=== PATIENT | female | born 1980 | race African-American/Black ===

== ENCOUNTER 2024-09-02 17:22 | Outpatient (OUT) | payer OTHER, SELFPAY ==
--- NOTE | 2024-09-02 | ECG_ITS ---
[facility] Test Date: 2024-09-02 Pat Name: Roxi Claudio Department: Room: - Gender: Female Hospital Cleaner: : 1980 Requested By: MIGUEL MAJOR Order Number: [id number] Reading MD: KEN GANNON Measurements Intervals [place] Rate: 95 P: 64 ID: [id number] QRS: 79 QRSD: 86 T: 51 QT: 351 QTc: 442 Interpretive Statements SINUS RHYTHM POSSIBLE LEFT ATRIAL ENLARGEMENT NONSPECIFIC T-WAVE ABNORMALITY Electronically Signed On 09-02-2024 19:45:04 EST by KEN GANNON
--- NOTE | 2024-09-02 18:00 | MM_ITS ---
Patient Name: EVANS SINCLAIR MR#: [id number] : 1980 Exam Date: 09/02/2024 Ordering Doctor: ARPITA MAJOR CNP RADIOLOGY REPORT PROCEDURE: MM TOMOSYNTHESIS SCREENING BI COMPARISON: MG MAMM SCREEN 3D AR CAD, 11/11/2021. MG MAMM SCREEN AR W CAD, 06/23/2020. MG MAMM SCREEN AR W CAD, 08/12/2018. INDICATIONS: Screening Calculator Name NCI Breast Cancer Risk Assessment Tool 5 Year Breast Cancer Risk 0.90% Lifetime Breast Cancer Risk 9.20% Personal Breast Cancer No Personal Ovarian Cancer No Treatments None Family Cancers Grandmother-maternal with breast cancer at age ~50; Grandfather-paternal with unknown cancer at age 51. LOCATION: [facility] BREAST COMPOSITION: The breasts are heterogeneously dense,which may obscure small masses. FINDINGS: DIAGNOSTIC CATEGORY 1--NEGATIVE. RIGHT BREAST: No significant suspicious finding. No significant change has occurred. LEFT BREAST: No significant suspicious finding. No significant change has occurred. RECOMMENDATIONS: ROUTINE MAMMOGRAM AND CLINICAL EVALUATION IN 12 MONTHS. PLEASE NOTE: A NORMAL MAMMOGRAM DOES NOT EXCLUDE THE POSSIBILITY OF BREAST CANCER. A CLINICALLY SUSPICIOUS PALPABLE LUMP SHOULD BE BIOPSIED. Dictated by: Jani Tam M.D. on 09/03/2024 at 14:39 Approved by: Jani Tam M.D. on 09/03/2024 at 14:41
== END 2024-09-02 17:23 | disposition home or self-care (01) ==
PROVIDERS: PCP Nurse Practitioner; Visit Provider Nurse Practitioner
DX: Z12.31 Encounter for screening mammogram for malignant neoplasm of breast (principal); R94.31 Abnormal electrocardiogram [ECG] [EKG]; Z80.3 Family history of malignant neoplasm of breast; Z80.8 Family history of malignant neoplasm of other organs or systems
CPT/HCPCS: 77063; 77067; 93005

== ENCOUNTER 2024-09-22 13:48 | Outpatient (OUT) | payer OTHER, SELFPAY ==
--- NOTE | 2024-09-22 14:00 | CA_ITS ---
Patient Name: EVANS SINCLAIR MR#: [id number] : 1980 Exam Date: 09/22/2024 Ordering Doctor: ARPITA Lala CNP ECHOCARDIOGRAM REPORT PROCEDURE: CA ECHO DOPPLER COMPLETE INDICATIONS: Hypertension, abnormal ECG, smoker COMPARISON: None. DESCRIPTION: COMPLETE ECHOCARDIOGRAM Real-time transthoracic echocardiography with 2D, M-mode, spectral and color flow Doppler performed. QUALITY: Technical quality was good. LEFT VENTRICLE: Normal chamber size. Proximal septal hypertrophy (sigmoid septum). LV EF: Global left ventricular systolic function is normal; visually estimated ejection fraction 60 to 65%. No significant wall motion abnormalities. DIASTOLIC: Normal diastolic function. ATRIAL SEPTUM: Visually appears intact. LEFT ATRIUM: Normal chamber size. RIGHT ATRIUM: Normal chamber size. RIGHT VENTRICLE: Normal chamber size. Normal right ventricular systolic function. TRICUSPID VALVE: Normal mobility and thickness. No stenosis with no regurgitation. MITRAL VALVE: Normal mobility and thickness. No evidence of mitral valve stenosis. There is no mitral annular calcification. Trivial mitral regurgitation. AORTIC VALVE: Normal trileaflet appearance. No visible sclerosis. Normal leaflet mobility. No evidence of aortic valve stenosis. No aortic regurgitation. AORTIC ROOT: Normal diameter and appearance. PULMONIC VALVE: Not well visualized. No stenosis. No regurgitation. PERICARDIUM: No evidence of pericardial effusion. IVC: Collapses with inspirations. IVC is normal in size. CONCLUSION: 1. Global left ventricular systolic function is normal; visually estimated ejection fraction is 60 to 65% 2. Normal right ventricular size and systolic function 3. The left atrium is normal in size 4. Normal diastolic function 5. No significant valvular abnormalities Adult Echocardiography Procedure Report Left Ventricle LVEDD (3.7 - 5.6 cm): 4.00 cm LVESD (2.2 - 4.0 cm): 2.74 cm LVIVS thickness (0.6 - 1.2 cm): 1.42 cm LVPW thickness (0.5 - 1.0 cm): 1.00 cm e': 0.10 m/s E - e': 9.58 LVOT Max Gradient: 3.64 mm[Hg] LVOT Area (cm2): 0.95 m/s Peak Velocity (LVOT): 0.95 m/s Mean Velocity (LVOT): 0.72 m/s LVOT Diameter 2.24 cm Left Atrium LA Volume Index (2D A2C): 33.39 ml/m2 Left Atrium Systolic Dimension: 3.70 cm Mitral Valve MV E to A Ratio: 1.13 Mitral Valve A-Wave Peak Velocity: 0.86 m/s Mitral Valve E-Wave Peak Velocity: 0.97 m/s Right Ventricle Aorta AO Root Diam: 3.37 cm Aortic Valve AoV Area (Peak Aries): 2.98 cm2, 2.98 cm2 AoV Area (VTI): 3.46 cm2, 3.46 cm2 Peak Velocity(Antegrade Flow): 1.27 m/s Peak Gradient(Antegrade Flow): 6.41 mm[Hg] Mean Velocity(Antegrade Flow): 0.86 m/s Mean Gradient(Antegrade Flow): 3.40 mm[Hg] Velocity Time Integral: 27.19 cm Tricuspid Valve Pulmonic Valve Mean Gradient: 1.15 mm[Hg] Mean Velocity: 0.50 m/s Peak Velocity: 0.77 m/s, 0.71 m/s Peak Gradient: 2.04 mm[Hg], 2.37 mm[Hg] Right Atrium Right Atrium Systolic Pressure: 44.65 ml, 44.65 ml Dictated by: Leela Nickerson M.D. on 09/22/2024 at 16:01 Approved by: Leela Nickerson M.D. on 09/22/2024 at 16:03
--- NOTE | 2024-09-22 14:29 | US_ITS ---
The [address] [address] Patient Name: EVANS SINCLAIR MRN: [id number] date: 1980 Sex: F Assigned Patient Location: CARD Current Patient Location: CARD Accession/Order Number: [id number] Exam Date: 09/22/2024 15:11 Report Date: 09/22/2024 15:24 At the request of: MIGUEL MAJOR NP Procedure: US thyroid THYROID ULTRASOUND CLINICAL DATA: Abnormal laboratory data showing hypothyroidism COMPARISON: None The thyroid lobes are enlarged. The right measures 6.0 x 2.3 x 2.4 cm. The left lobe measures 5.7 x 2.1 x 2.4 cm. The isthmus measures 8 mm. Echotexture is mildly heterogeneous and there is also mild hyperemia on the right. The midpole of the right thyroid lobe toward the isthmus, there is a hypoechoic nodule measuring 10 x 7 x 10 mm. There is also a second mildly heterogeneously slightly hyperechoic nodule at the mid to lower on that side superficially measuring 13 x 12 x 12 mm. On the right at the inferior pole, there is a colloid cyst measuring 6 x 4 x 5 mm. No thyroid nodularity is identified on the left. US/US thyroid IMPRESSION: THYROMEGALY AND RIGHT HYPEREMIA. SMALL RIGHT THYROID NODULES. Impression dictated by: Oralia Gillis M.D.09/22/2024 3:24 PM Dictation Location: [facility]ENTERGridX Electronically authenticated by: [id number] Y Date: 09/22/2024 15:24
== END 2024-09-22 13:49 | disposition home or self-care (01) ==
LOC: CARD 13:48
PROVIDERS: PCP Nurse Practitioner; Visit Provider Nurse Practitioner
DX: R94.31 Abnormal electrocardiogram [ECG] [EKG] (principal); I10 Essential (primary) hypertension; E03.9 Hypothyroidism, unspecified; E04.9 Nontoxic goiter, unspecified; R68.89 Other general symptoms and signs; E04.1 Nontoxic single thyroid nodule
CPT/HCPCS: 76536; 93306